=== PATIENT | female | born 1985 | race Caucasian/White ===

== ENCOUNTER 2016-11-28 01:43 | Emergency (ER) | payer OTHER ==
[2016-11-28 01:52] LABS: URINE MUCUS NONE SEEN (Up to 25%); URINE SQUAMOUS EPITHELIAL CELL NONE SEEN (<= 15/hpf)
[2016-11-28 02:03] LABS: URINE APPEARANCE CLOUDY; URINE COLOR YELLOW; URINE SPECIFIC GRAVITY 1.015 (0.001-1.035)
[2016-11-28 02:04] LABS: URINE BILIRUBIN NEGATIVE (NEGATIVE); URINE BLOOD 50 Ery/uL (2+) (NEGATIVE); URINE GLUCOSE NORMAL (NEGATIVE); URINE KETONE NEGATIVE (NEGATIVE); URINE LEUKOCYTE ESTERASE 500 WBC/uL (3+) (NEGATIVE); URINE NITRITE POSITIVE (NEGATIVE); URINE PROTEIN 100mg/dL (2+) (NEG - TRACE); URINE UROBILINOGEN 0.2mg/dL (Normal) (NEG-1mg/dL)
[2016-11-28 02:09] LABS: URINE WBC 50-100/hpf (0-4/hpf)
--- NOTE | 2016-11-28 02:22 | ER NURSING DOCUMENTATION ---
Nurse's Notes [facility] Name:Bernie Wynn Age:30 yrs Sex:Female :1985 Arrival Date:11/28/2016 Time:01:43 Bed3 Private MD:Heydi Zuluaga Diagnosis:Pyelonephritis Presentation: 11/28 01:48 Acuity: QUYNH 3 bw2 01:49 Presenting complaint: Patient states: she has burning when she urinates x 7 days. bw2 Transition of care: Home. 01:49 Method Of Arrival: Walk In 2 Triage Assessment: 01:50 General: Appears in no apparent distress, uncomfortable, Behavior is appropriate for bw2 age, cooperative. Pain: Complains of pain in lower abdominal pain with urination Pain began 7 days ago. Respiratory: No deficits noted. : Reports burning with urination. Historical: - Allergies: No known drug Allergies; - Tetanus: < 10 years. - Ebola Screening: : Patient negative for fever greater than or equal to 101.5 degrees Fahrenheit, and additional compatible Ebola Virus Disease symptoms. Patient denies exposure to infectious person. Patient denies travel to an Ebola-affected area in the 21 days before illness onset. No symptoms or risks identified at this time. . - Immunization history: Flu Vaccine < 1 year. - Social history: Smoking status: Patient states was never smoker of tobacco. Screenin:52 Infectious Disease Risk None. Abuse screen: Denies threats or abuse. Nutritional bw2 screening: No deficits noted. Assessment: 01:52 See Triage Assessment done by same RN. bw2 Vital Signs: 01:51 BP 126 / 77; Pulse 80; Resp 18; Temp 99(O); Pulse Ox 98% on R/A; Weight 68.04 kg; bw2 Height 5 ft. 5 in. (165.10 cm); Pain 4/10; 01:51 Body Mass Index 24.96 (68.04 kg, 165.10 cm) bw2 ED Course: 01:47 Patient arrived in ED. em2 01:47 Physician, Heydi is Private Physician. em2 01:48 Debi Mccromick is Primary Nurse. bw2 01:48 Triage completed. bw2 01:53 Valuables Remains with patient Patient has correct armband on for positive bw2 identification. 02:02 Patrick Finch MD is Attending Physician. tl1 02:05 Nhung Laura MD is Referral Physician. tl1 Administered Medications: 02:05 Drug: cefTRIAXone 1 grams; Route: IM; Site: left gluteus; bw2 02:17 Follow up: Response: No adverse reaction bw2 Outcome: 02:07 Discharge ordered by . tl1 02:21 Discharged to home ambulatory. bw2 02:21 Condition: good 02:21 Discharge Assessment: Patient awake, alert and oriented x 3. No cognitive and/or functional deficits noted. Patient verbalized understanding of disposition instructions. 02:21 Discharge instructions given to patient, Instructed on discharge instructions, follow up and referral plans. medication usage, Demonstrated understanding of instructions, medications, Prescriptions given X 1. 02:22 Patient left the ED. 2 11/29 15:32 Discharge F/U Call: Spoke with: patient. other: Name: pt is doing much better today. st "the abx are working". pt has no questions or concerns. Signatures: Gabbie Renee RN RN st Michael-regMelissa-valarie 2 Patrick Finch MD MD tl1 Debi Mccormick bw2
--- NOTE | 2016-11-28 02:22 | ER PHYSICIAN DOCUMENTATION ---
Physician Documentation [facility] Name:Bernie Wynn Age:30 yrs Sex:Female :1985 Arrival Date:11/28/2016 Time:01:43 Bed3 Private MD:Physician, No ED Patrick Lin Disposition: 11/28/16 02:07 Discharged to Home/Self Care. Impression: Pyelonephritis. - Condition is Good. - Discharge Instructions: PYELONEPHRITIS, Female (Adult). - Prescriptions for Levaquin 500 mg Oral Tablet - take 1 tablet by ORAL route once daily for 7 days; 7 tablet. - Medical Reconciliation form form. - Follow up: Nhung Laura MD; When: 7 - 10 days; Reason: Recheck today's complaints. - Problem is new. - Symptoms have improved. HPI: 11/28 01:50 This 30 yrs old Female presents to ER via Walk In with complaints of Urinary tl1 Problem. 01:50 The patient presents with urinary symptoms, dysuria, frequency, urgency. Onset: The tl1 symptoms/episode began/occurred gradually, 7 hour(s) ago. Modifying factors: The symptoms are alleviated by pyridium. Associated signs and symptoms: Pertinent positives: fever, Pertinent negatives: constipation, diarrhea. Severity of symptoms: At their worst the symptoms were moderate, in the emergency department the symptoms are unchanged. 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 Historical: - Allergies: No known drug Allergies; - Tetanus: < 10 years. - Ebola Screening: : Patient negative for fever greater than or equal to 101.5 degrees Fahrenheit, and additional compatible Ebola Virus Disease symptoms. Patient denies exposure to infectious person. Patient denies travel to an Ebola-affected area in the 21 days before illness onset. No symptoms or risks identified at this time. . - Immunization history: Flu Vaccine < 1 year. - Social history: Smoking status: Patient states was never smoker of tobacco. ROS: 01:50 : Positive for urinary symptoms. tl1 01:50 All other systems are negative. Exam: 01:50 Constitutional: This is a well developed, well nourished patient who is awake, alert, tl1 and in no acute distress. 01:50 Cardiovascular: Rate: normal. 01:50 Respiratory: Respirations: normal. 01:50 Abdomen/GI: Palpation: soft, mild abdominal tenderness, in the suprapubic area. 01:50 Back: CVA tenderness, that is mild, is noted on the right. 01:50 : CVA tenderness, on the right, Bladder: tenderness, that is mild. 01:50 Skin: Exam negative for acute changes. Vital Signs: 01:51 BP 126 / 77; Pulse 80; Resp 18; Temp 99(O); Pulse Ox 98% on R/A; Weight 68.04 kg; bw2 Height 5 ft. 5 in. (165.10 cm); Pain 4/10; 01:51 Body Mass Index 24.96 (68.04 kg, 165.10 cm) bw2 MDM: 02:01 Patient medically screened. tl1 02:30 Data reviewed: vital signs, nurses notes, and as a result, I will discharge patient. tl1 Counseling: I had a detailed discussion with the patient and/or guardian regarding: the historical points, exam findings, and any diagnostic results supporting the discharge/admit diagnosis, lab results, the need for outpatient follow up, with the patient's primary care provider, to return to the emergency department if symptoms worsen or persist or if there are any questions or concerns that arise at home. Response to treatment: There is no appreciated change of the patient's symptoms at this time, and as a result, I will discharge patient. 11/28 02:10 Order name: UA W/ MICRO -CULTURE IF IND; Complete Time: 04:45 EDMS 11/28 04:44 Interpretation: Abnormal: URINE APPEARANCE CLOUDY; URINE LEUKOCYTE ESTERASE 500 WBC/uL tl1 (3+); URINE NITRITE POSITIVE; URINE BLOOD 50 Vladimir/uL (2+); URINE RBC 5-10/hpf; URINE WBC 50-100/hpf; URINE BACTERIA 20-50 ORGANISMS/hpf. 11/28 08:37 Order name: URINE CULTURE EDMS Dispensed Medications: 02:05 Drug: cefTRIAXone 1 grams; Route: IM; Site: left gluteus; bw2 02:17 Follow up: Response: No adverse reaction bw2 Signatures: Patrick Finch MD MD tl1 Debi Mccormick bw2
[2016-11-28] MEDS ORDERED: LIDOCAINE HCL 1% 20 ML VIAL ONE (02:23)
[2016-11-28] MEDS ORDERED: cefTRIAXone SODIUM 1,000 MG/10 ML VIAL ONE (02:23)
== END 2016-11-28 02:22 | disposition home or self-care (01) ==
LOC: ER 01:43
DX: N10 Acute pyelonephritis (principal); B96.20 Unspecified Escherichia coli [E. coli] as the cause of diseases classified elsewhere
CPT/HCPCS: 81001; 87077; 87086; 87186; 96372; 99283; J0696